=== PATIENT | female | born 1980 | race Caucasian/White ===

== ENCOUNTER 2018-07-12 13:24 | Day surgery (SDC) | payer OTHER ==
[~2018-07-12 13:24] MED LIST: BUPIVACAINE 0.25%-EPI 1:200000 PF 30 ML VIAL ONE; SILVER NITRATE APPLICATOR TOP ONE
[2018-07-12] MEDS ORDERED: ceFAZolin 2 GM/50 ML 2 GM/50 ML BAG IV ONE ×2 (13:39→15:30)
--- NOTE | 2018-07-12 13:53 | ANESTHESIA ---
Pre-Anesthesia VS, & Labs - Diagnosis missed AB - Procedure dilation and curettage Vital Signs: Temp Pulse Resp BP Pulse Ox 36.4 C L 63 16 116/76 98 07/12/18 13:30 07/12/18 13:30 07/12/18 13:30 07/12/18 13:30 07/12/18 13:30 Height 5 ft 2 in Weight (kg) 56.7 kg - NPO >8 hours - Is Patient ?: Not Applicable Home Medications and Allergies Home Medications: Ambulatory Orders Pnv95/Ferrous Fumarate/FA [ Formula] 1 each PO 07/05/18 Pnv95/Ferrous Fumarate/FA [ Formula] 1 each PO 07/05/18 Allergies/Adverse Reactions: Allergies Allergy/AdvReac Type Severity Reaction Status Date / Time No Known Drug Allergies Allergy Verified 07/05/18 09:08 Anes History & Medical History - Anesthetic History Anesthesia Complications: reports: No previous complications Family history of Anesthesia Complications: Denies Family history of Malignant Hyperthermia: Denies - Medical History Cardiovascular: reports: None Pulmonary: reports: None Gastrointestinal: reports: None Urinary: reports: None Musculoskeletal: reports: None Endocrine/Autoimmune: reports: None Skin: reports: None - Surgical History General:  Eyes Ears Nose Throat (EENT): Other Exam General: Alert, Oriented x3, Cooperative, No acute distress Dental: WNL Mouth Openin Fingerbreadth Neck Mobility: Normal Mallampati classification: I Thyromental Distance: greater than 6 cm Respiratory: Lungs clear, Normal breath sounds, No respiratory distress, No accessory muscle use Cardiovascular: Regular rate, Normal S1, Normal S2, No murmurs Mental/Cognitive Status: Alert/Oriented X3, Normal for patient Plan Anesthesia Type: General Consent for Procedure(s) Verified and Reviewed: No Code Status: Attempt Resuscitation ASA classification: 1-Healthy patient Is this case an emergency?: No
[2018-07-12] MEDS ORDERED: LACTATED RINGERS 1,000 ML IV ONE (14:00)
[2018-07-12] MEDS ORDERED: BUPIVACAINE 0.25%-EPI 1:200000 PF 30 ML VIAL SUBQ ONE ×2 (14:27→15:10)
[2018-07-12] MEDS ORDERED: ONDANSETRON 4 MG/2 ML VIAL IVP PRN (15:26)
[2018-07-12] MEDS ORDERED: HYDROcod/ACETAM 10 MG/325 MG TABLET PO PRN (15:26)
[2018-07-12] MEDS ORDERED: LIDOCAINE-MPF 2% 5 ML VIAL IM ONE (15:30)
[2018-07-12] MEDS ORDERED: PROPOFOL 200 MG/20 ML VIAL IVP ONE (15:30)
[2018-07-12] MEDS ORDERED: fentaNYL 100 MCG/2 ML VIAL IVP ONE (15:30)
[2018-07-12] MEDS ORDERED: ONDANSETRON 4 MG/2 ML VIAL IVP ONE (15:30)
--- NOTE | 2018-07-12 15:32 | OPERATIVE REPORT ---
Operative Report - General Procedure Date: 07/12/18 Planned Procedure: Suction Dilation and Curettage Pre-Op Diagnosis: Missed Procedure Performed: Suction Dilation and Curettage Post Op Diagnosis: BREANNA - Procedure Note Primary Surgeon: Dr. Kamilla Garner Secondary Surgeon: None Anesthesia Provider: Jose Pandey Anesthesia Technique: General LMA, Local Pathology: Uterine contents IV Fluids (mL): 300 Estimated Blood Loss (mL): 3 Urine Output (mL): 0 Indications: The patient is a 37-year-old 2 para 1 female at 8 weeks gestation by last menstrual period, here for surgical management of early embryonic demise. Her last menstrual period was April,. She has had serial ultrasounds in the clinic over the past 3-4 weeks which have noted an intrauterine gestational sac with a yolk sac and small pole (4-5 mm consistent with 6+1 wks) but no cardiac activity over two separate ultrasounds. Her hCG levels initially rina and then fell. She is an otherwise healthy female [employer]. Her blood type is Rh+. The options for management of miscarriage were discussed with the patient, and she opted for surgical management in the fo rm of a suction dilation and curettage. The risks, benefits, limitations, alternatives, and expectations of surgery were discussed. The consent was then reviewed and signed prior to the date of surgery. Findings: Exam under anesthesia noted an 8-week size anteverted uterus with a closed cervical loss. Operative findings noted a moderate amount of products of conception and minimal bleeding. The cervix and vagina appeared normal. Complications: None - Other Other Information/Narrative: The patient was taken to the operating room, where general anesthesia with LMA was administered without difficulty. She was then positioned in the high dorsal lithotomy position with her lower extremities in [place] stirrups. Exam under anesthesia was then performed with the findings as noted above. Vagina and perineum were then prepped and draped in a sterile fashion. Procedure Time- Out was then performed. A sterile bivalved speculum was then placed into the vagina, and the anterior lip of the cervix was grasped with a single-tooth tenaculum. Quarter percent Marcaine with epinephrine was then injected at the 2:00, 4:00, 7:00, and 10:00 positions for a paracervical block. Serial dilation using Hegar dilators was then performed until an 8 mm curved rigid suction curette could be gently advan jorge to the uterine fundus. Using gentle suction, tissue and clot were removed. Sharp curettage was then performed with minimal additional tissue noted. Good crie was noted on all 4 hartman of the uterus. The suction curette was then reintroduced to ensure there was no residual tissue, and none was noted. There was minimal bleeding from the cervix at this time. The tenaculum was removed, and the tenaculum sites were hemostatic without need for silver nitrate. At this point, the procedure was deemed completed. Sponge, lap, and needle count were correct x 3, and there were no complications. The patient was awakened, replaced supine, and transferred to the PACU in stable condition.
[2018-07-12 15:51] VITALS: BP 120/84
== END 2018-07-12 13:25 | disposition home or self-care (01) ==
LOC: SDS 13:24
PROVIDERS: ATTEND Obstetrics & Gynecology
PROC: 10D17Z9 Manual Extraction of Products of Conception, Retained, Via Natural or Artificial Opening (ICD-10-PCS; principal; 2018-07-12 14:30)
DX: O02.1 Missed abortion (principal)
CPT/HCPCS: 59820; J0690; J7120